=== PATIENT | female | born 1975 | race Caucasian/White ===

== ENCOUNTER 2022-05-24 11:48 | Day surgery (SDC) | payer MEDICAID ==
[~2022-05-24] VITALS: Ht 167.6 cm; Wt 112.5 kg
[2022-05-24] MEDS: NITROGLYCERIN 0.4 MG/TAB BOTTLE SL PRN ×2 (13:39→15:39)
[2022-05-24] MEDS ORDERED: METOPROLOL TARTRATE INJ 5 MG/5 ML AMPUL ONE ×2 (15:05→15:16)
[2022-05-24] MEDS ORDERED: IOHEXOL-350 100 ML VIAL IV ONE (15:09)
[2022-05-24] MEDS ORDERED: CT SWABBABLE VALVE TRANS SET 1 EA INFUS.SET MC ONE (15:09)
[2022-05-24] MEDS: METOPROLOL TARTRATE INJ 5 MG/5 ML AMPUL IVP PRN ×6 (15:13→15:38)
[2022-05-24 15:39] VITALS: BP 110/75
== END 2022-05-24 15:48 | disposition short-term general hospital (02) ==
LOC: CT 11:48
PROVIDERS: ATTEND Internal Medicine
DX: I25.10 Atherosclerotic heart disease of native coronary artery without angina pectoris (principal); I77.89 Other specified disorders of arteries and arterioles; I31.3 Pericardial effusion (noninflammatory); I34.0 Nonrheumatic mitral (valve) insufficiency; I70.0 Atherosclerosis of aorta; R91.8 Other nonspecific abnormal finding of lung field
CPT/HCPCS: 75574; J3490 ×2; Q9967